=== PATIENT | male | born 1950 | race Caucasian/White ===

== ENCOUNTER → 2017-11-30 08:59 | Outpatient (CLI) | payer MEDICARE ==
[~2017-11-30] VITALS: Ht 190.5 cm; Wt 131.8 kg
--- NOTE | ~2017-11-30 | HEMODYNAMI ---
PATIENT:DREA POP MEDICAL RECORD: [id number] : 50 LOCATION:[facility] ADMISSION DATE: 11/30/17 Generatedon:11/30/201712:47 Patient name: DREA POP Patient #: [id number] SSN: DO B: 1950 Date of study: 11/30/2017 Page: Of Hemodynamic Procedure Report Patient Data Patient Demographics Procedure consent was obtained First Name: DREA Gender: Male Last Name: DONN : 1950 Middle Initial: MIKI Age: 67 year(s) Patient #: [id number] Race: Unknown Additional ID: [id number] Contact details Address: [address] [place] [address] State: [place] City: [facility] Zip code: [address] Past Medical History Allergies: No known allergies Admission Admission Data Admission Date: 11/30/2017 Admission Time: 8:59 Procedure Procedure Types Cath Procedure Diagnostic Procedure LHC LHC w/Coronaries Sedation Charges Moderate Sedation up to 15 minutes PCI Procedure Coronary Stent Coronary Stent Initial Procedure Description Procedure Date Procedure Date: 11/30/2017 Procedure Start Time: 12:25 Procedure End Time: 12:46 Procedure Staff Name Function Jorge More MD Performing Physician Pa Cifuentes RN Nurse Chyna Caraballo RT Monitor Lula Ricci RT Scrub Liam Shahid RN Senior Examiner Procedure Data Cath Procedure Fluoroscopy Diagnostic fluoroscopy Total fluoroscopy Time: 5.7 time: 5.7 min min Diagnostic fluoroscopy Total fluoroscopy dose: dose: 1286 mGy 1286 mGy Contrast Material Contrast Material Type Amount (ml) Isovue 300 104 Entry Location Entry Primary Successful Side Size Upsize Upsize Entry Closure Succes sful Closure Location (Fr) 1 (Fr) 2 (Fr) Remarks Device Remarks Femoral Right 5 Fr 6 Fr 7 Fr Exoseal artery Short Long Estimated blood loss: 5 ml Diagnostic catheters Device Type Used For End Catheter Placement MULTIPACK Pigtail 5 Fr LV Angiography catheter MULTIPACK JL 4.0 5Fr Left Coronary catheter Angiography MULTIPACK 3DRC 5Fr Right Coronary catheter Angiography Procedure Complications No complications Procedure Medications Medication Administration Route Dosage 0.9% NaCl I.V. 100 ml/hr Oxygen etCO2 Nasal cannula 2 l/min Versed I.V. 2 mg Fentanyl I.V. 100 mcg Versed I.V. 2 mg Heparin Bolus I.V. 5000 units Integrilin (Bolus I.V. 11.3 ml 2mg/ml) Integrilin (Bolus wasted 8.7 ml 2mg/ml) Plavix P.O. 600 mg Hemodynamics Rest Heart Rate: 40 (bpm) Pressure Samples Time Site Value (mmHg) Purpose Heart Use Rate(bpm) 12:29 LV 52/16,20 Snapshot 61 Snapshots Pre Cath Intra NCS Post Cath Vital Signs Time Heart Resp SPO2 etCO2 NIBP (mmHg) Rhythm Pain Sedation Rate (ipm) (%) (mmHg) Status Level (bpm) 12:15:36 42 15 99 0 154/80(131) NSR 0 (11) 10(A) , No pain 12:20:58 48 14 99 21 171/83(142) NSR 0 (11) 10(A) , No pain 12:25:24 38 37 100 36.1 126/77(102) NSR 0 (11) 10(A) , No pain 12:29:48 50 13 90 26.3 131/75(113) NSR 0 (11) 10(A) , No pain 12:34:15 51 13 93 0 136/72(117) NSR 0 (11) 10(A) , No pain 12:38:41 52 14 94 0 131/74(100) NSR 0 (11) 10(A) , No pain 12:43:03 51 13 96 18 135/72(115) NSR 0 (11) 10(A) , No pain Medications Time Medication Route Dose Verified Delivered Reason Notes Eff ectiveness by by 12:12:41 0.9% NaCl I.V. 100 Pa Pa Per physician ml/hr Vane Cifuentes RN RN 12:12:52 Oxygen etCO2 2 Pa Pa Per physician Nasal l/min Vane carrillo RN RN 12:23:14 Versed I.V. 2 mg Pa Pa for sedation Vane Cifuentes RN RN 12:23:22 Fentanyl I.V. 100 Pa Pa for sedation mcg Vane Cifuentes RN RN 12:25:49 Versed I.V. 2 mg Pa Pa for sedation Vane Cifuentes RN RN 12:36:26 Heparin I.V. 5000 Pa Pa for Bolus units Vane Cifuentes anticoagulation RN RN 12:36:41 Integrilin I.V. 11.3 Pa Pa for (Bolus ml Lorigan Lorigan antiplatelet 2mg/ml) RN RN therapy 12:36:52 Integrilin wasted 8.7 Pa Pa to sharp's (Bolus ml Lorigan Lorigan 2mg/ml) RN RN 12:47:21 Plavix P.O. 600 Pa Pa for mg Lorcatrachita Cifuentes antiplatelet RN RN therapy Procedure Log Time Note 11:50:03 Liam Shahid RN sent for patient. Start room use. 12:05:04 Time tracking: Regular hours (M-F 7:00 - 5:00) 12:05:08 Plan of Care:Hemodynamics will remain stable., Cardiac rhythm will remain stable., Comfort level will be maintained., Respiratory function will remain adequate., Patient/ family verbilizes understanding of procedure., Procedure tolerated without complication., Recovers from procedure without complications.. 12:09:51 Patient received from Pre/Post Procedure Room to CCL 2 Alert and oriented. Tansferred to table in Supine position. 12:09:52 Warm blankets applied, and lurdes hugger turned on for patient comfort. 12:09:52 Correct patient and procedure confirmed by team. 12:09:54 Signed procedure consent form obtained from patient. 12:09:54 ECG and BP/O2 sat monitors applied to patient. 12:09:55 Full Disclosure recording started 12:12:41 0.9% NaCl 100 ml/hr I.V. was administered by Pa Cifuentes RN; Per physician; 12:12:52 Oxygen 2 l/min etCO2 Nasal cannula was administered by Pa Cifuentes RN; Per physician; 12:14:06 Vital chart was started 12:14:14 Rhythm: sinus bradycardia 12:14:22 H&P Date Dictated: 11/30/2017 New H&P dictated by physician.. 12:15:17 Pre-procedure instructions explained to patient. 12:15:18 Pre-op teaching completed and patient verbalized understanding. 12:15:20 Family in patients room. 12:15:21 Patient NPO since Midnight. 12:15:29 Patient allergic to No known allergies 12:15:31 Is the patient allergic to Iodine/contrast media? No. 12:15:32 Is patient on blood thinner?No 12:18:03 Patient diabetic? No. 12:18:05 Previous problem with sedation/anesthesia? No ? 12:18:07 Snore? Yes 12:18:08 Sleep apnea? Yes 12:18:08 Deviated septum? No 12:18:09 Opens mouth fully? Yes 12:18:10 Sticks out tongue? Yes 12:18:12 Airway obstruction? No ? 12:18:15 Dentures? No ? 12:18:22 Pre procedure: right dorsailis pedis pulse 1+ Palpable, but thready & weak; easily obliterated 12:18:24 Pre procedure: left dorsailis pedis pulse 1+ Palpable, but thready & weak; easily obliterated 12:18:25 Patient pain scale 0/10 ?. 12:19:20 IV patent on arrival in left forearm with 0.9% NaCl at [facility]. 12:19:24 Lab results completed and on chart. 12:19:29 Right groin area was prepped with chlora-prep and draped in sterile fashion 12:19:30 Alarms reviewed by R. N. 12:19:30 Sharps counted by scrub and verified by R.N. 12:22:39 Physician arrived 12:22:39 --------ALL STOP TIME OUT------ 12:22:40 Final Timeout: patient, procedure, and site verified with staff and physician. All members of the team are in agreement. 12:22:42 Right groin site verified by team. 12:22:45 Physical assessment completed. ASA score P 2 - A patient with mild systemic disease as per Jorge More MD. 12:22:48 Sedation plan: IV Moderate Sedation Medication:Versed, Fentanyl 12:23:14 Versed 2 mg I.V. was administered by Pa Cifuentes RN; for sedation; 12:23:22 Fentanyl 100 mcg I.V. was administered by Pa Cifuentes RN; for sedation; 12:24:58 Baseline sample Acquired. 12:25:18 Use device set Femoral Dx 12:25:19 ACIST Syringe (11682) opened to sterile field. 12:25:19 Bag Decanter (2002S) opened to sterile field. 12:25:20 Medline Cath Pack ([id number]) opened to sterile field. 12:25:20 DIAGNOSTIC WIRE .035 260cm J wire ([id number]) opened to sterile field. 12:25:21 ACIST Hand Control (58140) opened to sterile field. 12:25:22 ACIST Manifold (14794) opened to sterile field. 12:25:22 DIAGNOSTIC Multipack 5Fr catheter set (GA9730) opened to sterile field. 12:25:24 Tegaderm 4 x 4 (1626W) opened to sterile field. 12:25:26 SHEATH Prelude 5Fr 0.035 ([id number]-8F-34-035) opened to sterile field. 12:25:34 Procedure started. 12:25:40 Local anesthetic to right femoral artery with Lidocaine 2% by Jorge More MD.INITIAL ACCESS ONLY 12::49 Versed 2 mg I.V. was administered by Pa Cifuentes RN; for sedation; 12::49 A 5 Fr sheath was inserted into the Right Femoral artery 12:27:06 A MULTIPACK Pigtail 5 Fr catheter was advanced over the wire and used for LV Angiography. 12:29:08 LV hemodynamics recorded. 12:29:09 LV gram done using MCMAHAN 12:29:12 Injector settings: Ml/sec: 5, Volume: 15, 12:29:22 EF : 50 % 12:29:37 Catheter removed. 12:29:41 A MULTIPACK JL 4.0 5Fr catheter was advanced over the wire and used for Left Coronary Angiography. 12:30:15 LCA angiography performed. 12:30:51 Injector settings: Ml/sec: 3, Volume: 6, 12:31:02 Catheter removed. 12:31:05 A MULTIPACK 3DRC 5Fr catheter was advanced over the wire and used for Right Coronary Angiography. 12:31:39 RCA angiography performed. 12:31:43 Injector settings: Ml/sec: 3, Volume: 6, 12:32:21 Catheter removed. 12:32:23 Proceeding to intervention. 12:32:39 SHEATH 6Fr Prelude ([id number]) opened to sterile field. 12:32:40 CHOICE PT Extra Support 182cm wire ([id number]) opened to sterile field. 12:32:41 INFLATOR Merit BasixCompak (IC6245) opened to sterile field. 12:32:58 Sheath upsized to a 6 Fr Short. 12:33:31 GUIDE 6FR MB 2 catheter (LA6MB2) opened to sterile field. 12:34:24 6 Fr mb2 guide catheter was inserted over the wire 12:35:41 Guide Catheter removed. unable to cannulate vessel. 12:36:21 GUIDE 6FR AR 2.0 catheter (QJ6PL71) opened to sterile field. 12:36:26 Heparin Bolus 5000 units I.V. was administered by Pa Cifuentes RN; for anticoagulation; 12:36:26 6 Fr ar 2 guide catheter was inserted over the wire 12:36:41 Integrilin (Bolus 2mg/ml) 11.3 ml I.V. was administered by Pa Cifuentes RN; for antiplatelet therapy; 12:36:52 Integrilin (Bolus 2mg/ml) 8.7 ml wasted was administered by Pa Cifuentes RN; to sharp's; 12:37:10 Guide Catheter removed. unable to cannulate vessel. 12:37:34 SHEATH 7FR ARROW 45cm ([id number]) opened to sterile field. 12:37:55 Sheath upsized to a 7 Fr Long. 12:39:00 EXOSEAL 7Fr (EX700) opened to sterile field. 12:39:49 GUIDE 7FR AR 2.0 catheter (UI4XS94) opened to sterile field. 12:39:59 7 Fr ar 2 guide catheter was inserted over the wire 12:42:27 Place stent Inflation Number: 1 A INTEGRITY RX 2.5 x 26 stent ([id number]) was prepped and advanced across the Mid RCA. The stent was deployed at 15 ANANT for 0:10 (min:sec). 12:43:08 Stent catheter was removed intact over wire. 12:43:09 Wire removed. 12:43:09 Guide catheter removed. 12:43:27 Sheath removed intact; hemostasis achieved with Exoseal to the Right Femoral artery. 12:43:29 Procedure ended.(Physican Out) 12:44:39 Fluoroscopy time 05.70 minutes. 12:44:54 Fluoroscopy dose: 1286 mGy 12:44:54 Flurop Dose total: 1286 12:45:28 Contrast amount:Isovue 300 104ml. 12:45:30 Sharps counted by scrub and verified by R.N. 12:45:32 Insertion/operative site no bleeding no hematoma. 12:45:35 Post-op/insertion site Right Femoral artery dressed using a 4 x 4 and Tegaderm. 12:45:38 Post right femoral artery:stable 12:45:40 Post Procedure Pulses reassessed and unchanged 12:45:48 Post procedure rhythm: unchanged. 12:45:50 Estimated blood loss: 5 ml 12:45:52 Post procedure instruction explained to patient.Patient verbalizes understanding. 12:45:52 Patient needs reinforcement of post procedure teaching. 12:46:12 Procedure type changed to Cath procedure, Diagnostic procedure, LHC, LHC w/Coronaries, Sedation Charges, Moderate Sedation up to 15 minutes, PCI procedure, Coronary Stent, Coronary Stent Initial 12:46:13 Procedure and supply charges have been captured, reviewed, submitted and are correct. 12:46:18 Procedure Complication : No complications 12:46:20 Vital chart was stopped 12:46:20 See physician's report for complete and final results. 12:46:22 Report given to Pre/Post Procedure Room. 12:46:27 Patient transfered to Pre/Post Procedure Room with Stretcher. 12:46:53 Procedure ended. 12:46:53 Full Disclosure recording stopped 12:47:01 ACC-PCI Only Patient was given prescriptions, or instructed by Jorge More MD to start/continue the following medications upon discharge: Plavix 12:47:03 End room use (Document Last) 12:47:21 Plavix 600 mg P.O. was administered by Pa Cifuentes RN; for antiplatelet therapy; Intervention Summary Intervention Notes Time ActionType Lesion and Equipment Action# Pressure Duration Attributes Used 12:42:27 Place stent Mid RCA INTEGRITY RX 1 15 00:10 2.5 x 26 stent ([id number]) Device Usage Item Name Manufacture Quantity Catalog Number Hospital Part Current M inimal Lot# / Charge Number Stock Stock Serial# Code ACIST Syringe Acist 1 04389 861016 635796 687358 2 0 (15767) [employer] Inc Bag Decanter Microtek 1 047756 46613 729819 5 () Medical Inc. Medline Cath Cardinal 1 [id number] 740791 10372 467529 5 Pack Health ([id number]) DIAGNOSTIC WIRE St Satish 1 955206 700454 708546 914657 3 0 .035 260cm J wire (557688) ACIST Hand Acist 1 27173 155477 783476 856858 5 Control (46080) [employer] Inc ACIST Manifold Acist 1 45064 044846 119549 053898 5 (65631) Medical Systems Inc DIAGNOSTIC Cardinal 1 JV7815 856230 62929 915848 3 0 Multipack 5Fr Health catheter set (JA0689) Tegaderm 4 x 4 3M 1 1626W 923663 420074 021034 5 (1626W) SHEATH Prelude Merit 1 [id number]-[id number] 555567 498570 529284 5 5Fr 0.035 Medical ([id number]-9F-[id number]) MULTIPACK Cardinal 1 818289 5 Pigtail 5 Fr Health catheter MULTIPACK JL Cardinal 1 256836 5 4.0 5Fr Health catheter MULTIPACK 3DRC Cardinal 1 932857 5 5Fr catheter Health SHEATH 6Fr Merit 1 [id number] 740640 861621 571239 5 Prelude Medical ([id number]) CHOICE PT Extra [place] 1 [id number] 858447 912298 609186 5 Support 182cm Scientific wire ([id number]) INFLATOR Merit Merit 1 JJ8414 189872 949219 037850 1 5 Embedded Chat (GF9298) GUIDE 6FR MB 2 Medtronic 1 LA6MB2 131668 27337 432576 1 catheter (LA6MB2) GUIDE 6FR AR Medtronic 1 TN1VP14 116677 50946 804503 1 2.0 catheter ([id number]) SHEATH 7FR Teleflex 1 CL-28545 514707 096679 309943 1 ARROW 45cm (JL78984) EXOSEAL 7Fr Cardinal 1 EX700 499473 695931 387986 5 (EX700) Health GUIDE 7FR AR Medtronic 1 JQ3AZ45 593373 046198 700396 0 2.0 catheter ([id number]) INTEGRITY RX Medtronic 1 [id number] 610137 689444 391071 5 [id number] 2.5 x 26 stent ([id number]) Signature Audit [place] Stage Time Signature Unsigned Intra-Procedure 11/30/2017 Chyna Caraballo 12:47:41 PM RT(R) Signatures Monitor : Chyna Caraballo RT Signature : Date : Time : [facility] [address] [place] [address]
--- NOTE | ~2017-11-30 | HP ---
PATIENT: DREA POP MEDICAL RECORD: [id number] ACCOUNT: [id number] LOCATION:[facility] : 50 ADMISSION DATE: 11/30/17 HISTORY AND PHYSICAL EXAMINATION DIAGNOSES: 1. Angina. 2. Shortness of breath. 3. Coronary artery disease. 4. Preop evaluation, orthopedic surgery. 5. Hypertension. 6. Hyperlipidemia. HISTORY OF PRESENT ILLNESS: This is a gentleman who presents with chest discomfort as well as shortness of breath. He is set to have orthopedic surgery; however, due to his symptomatology and past history of coronary artery disease, anesthesia requested further workup. His last cardiac intervention was in 2008. REVIEW OF SYSTEMS: The patient reports easy bruising but reports no swollen glands. The patient reports no fever, no night sweats, no significant weight gain, no significant weight loss. No significant exercise tolerance. The patient reports no dry eyes, no irritation, no vision change. Patient reports no difficulty hearing and no ear pain. Patient reports no frequent nose bleeds or nose and sinus problems. Patient reports on arm pain on exertion. No shortness of breath while lying down. No history of heart murmur. Patient reports no cough, no wheezing or coughing up blood. Patient reports no abdominal pain, no vomiting. Normal appetite. No diarrhea and not vomiting blood. No nausea and no constipation. Patient reports no incontinence. No difficulty urinating. No hematuria. No increased frequency. Patient reports no muscle aches. No weakness, no arthralgias, no back pain. No swelling of the extremities. Patient reports no abnormal mole, no jaundice, no rashes. Reports no loss of consciousness. No weakness and no numbness. No seizures, dizziness, or headaches. The patient reports no depression, no sleep disturbance, feeling safe in a relationship and no alcohol abuse. Patient reports on fatigue. Reports no runny nose or sinus pressure. No itching, no hives, and no frequent sneezing. PHYSICAL EXAMINATION: GENERAL APPEARANCE: Well-nourished, well-developed, appears stated age. Level of distress, comfortable. PSYCHIATRIC: Mental status, alert, normal affect. Orientation, oriented to time, place and person. EYES: Lids and conjunctiva, noninjected. No discharge, no pallor. ENT: Lips, teeth, gums, normal dentition. Oropharynx, no cyanosis, no pallor. NECK: Carotid arteries, bilateral normal upstroke, no bruits, no thrills. JUGULAR VEINS: No jugular venous pressure or distention. CERVICAL LYMPH NODES: Nontender, nonenlarged. THYROID: Not enlarged. Nontender. No nodules. LUNGS: Respiratory effort, unlabored. CHEST: Normal curvature. No thoracic deformity. No chest wall tenderness. Percussion, resonant. Auscultation, clear. No wheezes, no rales, no rhonchi. CARDIOVASCULAR: Precordial exam, nondisplaced. No heaves or pericardial thrills. Rate and rhythm, regular. Heart sounds, normal S1, normal S2. No S3, no gallop, no rub. Systolic murmur, not heard. Diastolic murmur, not heard. HISTORY AND PHYSICAL [id number] DREA POP EXTREMITIES: No cyanosis, no edema. Peripheral pulses, full and equal in all extremities, except as noted. No bruits appreciated. ABDOMEN: Soft, nondistended. Normal aorta. No bruit. Nontender. No masses. Liver, nontender, no hepatomegaly. Spleen, nontender, no splenomegaly. MUSCULOSKELETAL: No joint tenderness. No joint swelling. No erythema. NEUROLOGICAL: Normal gait, normal strength, normal tone. SKIN: Warm and dry. OVERALL IMPRESSION: Anginal symptomatology, shortness of breath. We will proceed with coronary angiography. Further care depends upon the findings of the angiography. TRANSINT:[id number] Voice Confirmation ID: [id number] DOCUMENT ID: [id number] FAUSTINO NEVILLE MD at 1006 CC: [id number] DICTATION DATE: 11/30/17 1009 INLAYER: 11/30/17 1035 DEP CLI 11/30/17 [place] [id number] [place] [address]
--- NOTE | ~2017-11-30 | OP ---
PATIENT NAME: DREA POP MEDICAL RECORD: [id number] :50 LOCATION:D.CAT ADMISSION DATE: SURGEON: FAUSTINO NEVILLE MD DATE OF OPERATION: 11/30/2017 PROCEDURES: 1. PTCA stent RCA. 2. Left heart catheterization. 3. Selective coronary angiography. 4. Left ventriculogram. INDICATION: Angina and coronary artery disease. PROCEDURE IN DETAIL: After informed consent was obtained and after detailed explanation of risks, benefits as well as alternative therapies, the patient elected to proceed with angiogram and angioplasty. The right femoral area is prepped and draped in normal sterile fashion. Right femoral artery was cannulated via modified Seldinger technique with placement of 7-[place] sheath. All catheter exchanged through this sheath. FINDINGS: Left ventriculogram was performed in standard 30-degree MCMAHAN view and reveals preserved cardiac wall motion, ejection fraction 50%. SELECTIVE CORONARY ANGIOGRAPHY: 1. Left main is with no significant angiographic disease. 2. Left anterior descending has previously placed stent. This is widely patent with no significant restenosis. No disease elsewise throughout the LAD or its branches. 3. Left circumflex has moderate irregularities, but no flow-limiting stenosis. 4. Right coronary has a relatively long area of 70% to 80% stenosis in the mid vessel. PTCA STENT OF THE RIGHT CORONARY: The stent used was a 2.5 x 26 mm Integrity taken to 17 atmospheres. Result was 0% residual stenosis. OVERALL IMPRESSION: Successful percutaneous transluminal angioplasty stent of the right coronary artery going from 70% to 80% initial stenosis to 0% residual. TRANSINT:[id number] Voice Confirmation ID: [id number] DOCUMENT ID: [id number] FAUSTINO NEVILLE MD at 1006 CC: [id number] DICTATION DATE: 11/30/17 1249 [employer]ER: 11/30/17 1305 DEP CLI 11/30/17 [place] [id number]
[~2017-11-30 08:59] MED LIST: ALDACTONE25 MG PO; CARDURA2 MG PO; KLOR-CON M2020 MEQ PO; LISINOPRIL-HCTZ1 T13 PO; NEURONTIN600 MG PO; NORVASC5 MG PO; PLAVIX75 MG PO
[2017-11-30 10:01] VITALS: BP 141/90; Ht 190.5 cm; Wt 131.8 kg
[2017-11-30 10:20] LABS: BASOPHILS 0.4 % (0-2); EOSINOPHILS 3.3 % (0-7); HEMOGLOBIN 14.8 g/dL (13.5-17.5); IMMATURE GRANULOCYTES 0.6 % (0-5); LYMPHOCYTES 21.7 % (15-50); MCH 29.4 pg (26.0-34.0); MCHC 33.6 g/dL (31.0-37.0); MCV 87.5 fL (80.0-100.0); MEAN PLATELET VOLUME 10.1 fL (7.4-10.4); MONOCYTES 8.4 % (2-11); NEUTROPHILS 65.6 % (40-80); PLATELET COUNT 122 10x3/uL (130-400); RBC 5.03 10x6/uL (4.20-6.10); WBC 5.2 10x3/uL (4.8-10.8)
[2017-11-30 10:40] LABS: CALCIUM 9.4 mg/dL (8.5-10.1); CARBON DIOXIDE 24.6 mmol/L (21.0-32.0); CREATININE - SERUM 1.1 mg/dL (0.6-1.3); POTASSIUM - SERUM 4.6 mmol/L (3.5-5.1)
== END | disposition home or self-care (01) ==
LOC: D.CATH 08:59
PROVIDERS: Internal Medicine Interventional Cardiology
DX: I25.119 Atherosclerotic heart disease of native coronary artery with unspecified angina pectoris (principal); R06.02 Shortness of breath; I10 Essential (primary) hypertension; E78.5 Hyperlipidemia, unspecified; Z01.812 Encounter for preprocedural laboratory examination